=== PATIENT | female | born 1985 | race African-American/Black ===

== ENCOUNTER 2017-02-04 21:33 | Emergency (ER) | payer OTHER ==
[~2017-02-04] VITALS: Ht 162.6 cm; Wt 86.2 kg
[~2017-02-04 21:33] MED LIST: NO REPORTABLE MEDS
[2017-02-04] MEDS ORDERED: KETOROLAC TROMETHAMINE 15 MG/ML VIAL ONE (22:42)
[2017-02-04] MEDS: KETOROLAC TROMETHAMINE INJ 30 MG/ML VIAL IM ONE (22:49)
[2017-02-04 22:57] VITALS: BP 151/87
== END 2017-02-04 22:58 | disposition home or self-care (01) ==
LOC: ER 21:38
DX: J06.9 Acute upper respiratory infection, unspecified (principal); B34.9 Viral infection, unspecified
CPT/HCPCS: 96372; 99283; A4606; J1885; Z7610

== ENCOUNTER 2017-02-07 02:21 | Emergency (ER) | payer OTHER ==
[~2017-02-07] VITALS: Ht 162.6 cm; Wt 81.6 kg
[2017-02-07 02:29] VITALS: BP 142/85
== END 2017-02-07 03:31 | disposition home or self-care (01) ==
LOC: ER 02:28
DX: J02.8 Acute pharyngitis due to other specified organisms (principal); Z90.49 Acquired absence of other specified parts of digestive tract
CPT/HCPCS: 99281; A4606; Z7610; Z7502

== ENCOUNTER → 2017-07-12 | Emergency (ER) | payer OTHER ==
[~2017-07-12] VITALS: Ht 162.6 cm; Wt 81.6 kg
--- NOTE | 2017-07-12 00:04 | NUR ---
Patient c/o intermittent sharp chest pain radiating to epigastric and neck x 2 weeks. VSS. Denies shortness of breath at this time. Awaiting MD evaluation.
--- NOTE | 2017-07-12 01:25 | NUR ---
Tech at bedside for EKG
--- NOTE | 2017-07-12 01:38 | NUR ---
Xray taken at bedside
--- NOTE | 2017-07-12 02:07 | NUR ---
Patient discharged to home in stable condition. Written and verbal after care instructions given. Patient verbalizes understanding of instruction.
[2017-07-12 02:08] VITALS: BP 138/78
== END | disposition home or self-care (01) ==
LOC: ER 00:04
DX: R07.89 Other chest pain (principal); Z90.49 Acquired absence of other specified parts of digestive tract
CPT/HCPCS: 71010-TC; A4606; Z7610

== ENCOUNTER 2020-01-20 00:24 | Emergency (ER) | payer OTHER ==
[~2020-01-20] VITALS: Ht 162.6 cm; Wt 81.6 kg
--- NOTE | 2020-01-20 00:38 | NUR ---
PT AAOX4. AMBULATORY WITH STEADY GAIT. BIBS, C/O MIDSTERNAL CP SINCE 1899 NON RADIATING, 10/10 PAIN. VSS. AWAITING MD FOR EVAL. WILL CONTINUE TO MONITOR.
--- NOTE | 2020-01-20 00:39 | NUR ---
PLACED ON MONITOR AND PULSE OX.
[2020-01-20] MEDS ORDERED: LIDOCAINE VISCOUS 2% UD 15 ML UDC ONE (00:48)
[2020-01-20] MEDS ORDERED: ONDANSETRON 4 MG TAB.RAPDIS ONE (00:49)
[2020-01-20] MEDS ORDERED: MAG HYDROX/AL HYDROX/SIMETH 30 ML UDC ONE (00:49)
[2020-01-20] MEDS ORDERED: LIDOCAINE VISCOUS 2% UD 15 ML UDC MM ONE (01:00)
[2020-01-20] MEDS ORDERED: ONDANSETRON 4 MG TAB.RAPDIS SL ONE (01:00)
[2020-01-20] MEDS ORDERED: MAG HYDROX/AL HYDROX/SIMETH 30 ML UDC PO ONE (01:00)
--- NOTE | 2020-01-20 01:23 | NUR ---
Patient discharged to home in stable condition. Written and verbal after care instructions given. Patient verbalizes understanding of instruction and RX. Pt ambualted with steady gait. vss.
[2020-01-20 01:26] VITALS: BP 138/71
== END 2020-01-20 01:27 | disposition home or self-care (01) ==
LOC: ER 00:27
DX: K21.9 Gastro-esophageal reflux disease without esophagitis (principal); Z98.890 Other specified postprocedural states; Z60.2 Problems related to living alone
CPT/HCPCS: 93005; 99283; Q0162

== ENCOUNTER 2022-05-30 23:40 | Emergency (ER) | payer SELFPAY ==
[~2022-05-30] VITALS: Ht 162.6 cm; Wt 90.7 kg
--- NOTE | 2022-05-31 01:04 | NUR ---
BIBS C/O SORE THROAT X 3 DAYS TAKING UNSPRESCRIBED ANTIBIOTICS. STATES "THIS ALWAYS HAPPENS TO ME WHEN I VISIT SPEEDY". PT AWAKE AND ALERT X4 BREATHING EVEN AND UNLABORED. V/S WNL.
--- NOTE | 2022-05-31 01:10 | NUR ---
COVID AND RAPID STREP COLLECTED AND SENT TO LAB
[2022-05-31] MEDS ORDERED: DEXAMETHASONE SOD PHOSPHATE 10 MG/ML VIAL ONE (01:18)
[2022-05-31] MEDS ORDERED: PENICILLIN G BENZATHINE 2.4 MMU/4 ML ML IM ONE ×2 (01:30→01:41)
[2022-05-31] MEDS ORDERED: DEXAMETHASONE SOD PHOSPHATE 4 MG/ML VIAL IM ONE (01:30)
--- NOTE | 2022-05-31 01:49 | NUR ---
Patient discharged to home in stable condition. Written and verbal after care instructions given. Patient verbalizes understanding of instruction.
[2022-05-31 01:52] VITALS: BP 122/65
== END 2022-05-31 01:52 | disposition home or self-care (01) ==
LOC: ER 23:43
DX: J02.9 Acute pharyngitis, unspecified (principal); Z20.822 Contact with and (suspected) exposure to COVID-19; Z90.49 Acquired absence of other specified parts of digestive tract; R01.1 Cardiac murmur, unspecified
CPT/HCPCS: 99283; 87426; 96372; 87070; 87880; J0558; C9803; 86403-TC; J1100